=== PATIENT | female | born 1940 | race Caucasian/White ===

== ENCOUNTER 2020-10-01 | Outpatient (REF) | payer MEDICARE, SELFPAY ==
[2020-10-01 10:51] LABS: MANUAL DIFF FLAG NO
[2020-10-01 10:58] LABS: Basophils Absolute Auto 0.1 X10*3/uL (0.0-0.2); Basophils Percent Auto 0.4 % (0-2); Eosinophils Absolute Auto 0.1 X10*3/uL (0.0-0.4); Eosinophils Percent Auto 0.9 % (0-4); Hematocrit 37.5 % (37-47); Hemoglobin 12.5 g/dl (12.0-16.0); Imm Gran Abs Auto 0.05 X10*3/uL (0.00-0.03); Imm Gran Pct Auto 0.4 % (0.0-0.4); Lymphocytes Absolute Auto 1.3 X10*3/uL (1.2-4.9); Lymphocytes Percent Auto 10.9 % (20-40); Mean Corpuscular HGB Conc 33.3 g/dl (31.0-35.0); Mean Corpuscular Hemoglobin 33.6 pg (27.0-33.0); Mean Corpuscular Volume 100.8 fL (80-98); Mean Platelet Volume 11.7 fL (9.4-12.3); Monocytes Absolute Auto 1.1 X10*3/uL (0.1-1.2); Monocytes Percent Auto 9.3 % (2-11); Neutrophils Absolute Auto 9.3 X10*3/uL (2.0-8.3); Neutrophils Percent Auto 78.1 % (45-73); Platelet Count 302 X10*3/uL (160-400); Red Blood Count 3.72 X10*6/uL (4.20-5.50); Red Cell Distribution Width 12.6 % (11.0-16.0); White Blood Count 11.9 X10*3/uL (4.8-10.8)
[2020-10-01 11:24] LABS: Anion Gap 18 (12-20); Blood Urea Nitrogen 64 mg/dL (9-16); Calcium 9.1 mg/dL (8.4-10.2); Carbon Dioxide 25 mmol/L (22-29); Chloride 98 mmol/L (96-108); Estimated Glomerular Filt Rate 27; Glucose Random 115 mg/dL (60-115); Potassium 4.4 mmol/l (3.3-5.1); Sodium 137 mmol/L (135-145)
== END 2020-10-01 00:01 | disposition home or self-care (01) ==
LOC: HO.LHD
PROVIDERS: Visit Provider Internal Medicine
DX: D50.0 Iron deficiency anemia secondary to blood loss (chronic) (principal); I48.11 Longstanding persistent atrial fibrillation; K21.9 Gastro-esophageal reflux disease without esophagitis; I10 Essential (primary) hypertension
CPT/HCPCS: 36415; 80048; 85025

== ENCOUNTER 2020-12-12 05:27 | Outpatient (REF) | payer MEDICARE, SELFPAY ==
[2020-12-12 11:16] LABS: MANUAL DIFF FLAG NO
[2020-12-12 11:21] LABS: Basophils Absolute Auto 0.1 X10*3/uL (0.0-0.2); Basophils Percent Auto 0.6 % (0-2); Eosinophils Absolute Auto 0.1 X10*3/uL (0.0-0.4); Eosinophils Percent Auto 0.9 % (0-4); Hematocrit 37.8 % (37-47); Hemoglobin 12.2 g/dl (12.0-16.0); Imm Gran Abs Auto 0.02 X10*3/uL (0.00-0.03); Imm Gran Pct Auto 0.3 % (0.0-0.4); Lymphocytes Absolute Auto 1.1 X10*3/uL (1.2-4.9); Lymphocytes Percent Auto 13.4 % (20-40); Mean Corpuscular HGB Conc 32.3 g/dl (31.0-35.0); Mean Corpuscular Hemoglobin 32.7 pg (27.0-33.0); Mean Corpuscular Volume 101.3 fL (80-98); Mean Platelet Volume 10.9 fL (9.4-12.3); Monocytes Absolute Auto 0.7 X10*3/uL (0.1-1.2); Monocytes Percent Auto 9.2 % (2-11); Neutrophils Percent Auto 75.6 % (45-73); Platelet Count 351 X10*3/uL (160-400); Red Blood Count 3.73 X10*6/uL (4.20-5.50); Red Cell Distribution Width 12.1 % (11.0-16.0)
[2020-12-12 11:53] LABS: Anion Gap 17 (12-20); Blood Urea Nitrogen 40 mg/dL (9-16); Calcium 9.2 mg/dL (8.4-10.2); Carbon Dioxide 26 mmol/L (22-29); Chloride 98 mmol/L (96-108); Estimated Glomerular Filt Rate 29; Glucose Random 103 mg/dL (60-115); Sodium 137 mmol/L (135-145)
== END 2020-12-12 05:28 | disposition home or self-care (01) ==
LOC: HO.LHD 05:27
PROVIDERS: Visit Provider Internal Medicine
DX: D50.0 Iron deficiency anemia secondary to blood loss (chronic) (principal); R60.0 Localized edema; I48.19 Other persistent atrial fibrillation; E55.9 Vitamin D deficiency, unspecified; J30.2 Other seasonal allergic rhinitis; J45.20 Mild intermittent asthma, uncomplicated
CPT/HCPCS: 36415; 80048; 85025

== ENCOUNTER 2021-06-25 08:21 | Outpatient (REF) | payer MEDICARE, SELFPAY ==
[2021-06-25 10:58] LABS: MANUAL DIFF FLAG NO
[2021-06-25 11:05] LABS: Basophils Percent Auto 0.5 % (0-2); Eosinophils Percent Auto 1.9 % (0-4); Hemoglobin 12.7 g/dl (12.0-16.0); Imm Gran Abs Auto 0.02 X10*3/uL (0.00-0.03); Imm Gran Pct Auto 0.3 % (0.0-0.4); Lymphocytes Percent Auto 16.6 % (20-40); Mean Corpuscular HGB Conc 32.6 g/dl (31.0-35.0); Mean Corpuscular Hemoglobin 33.1 pg (27.0-33.0); Mean Corpuscular Volume 101.6 fL (80-98); Mean Platelet Volume 11.9 fL (9.4-12.3); Monocytes Percent Auto 10.1 % (2-11); Neutrophils Absolute Auto 5.6 X10*3/uL (2.0-8.3); Neutrophils Percent Auto 70.6 % (45-73); Platelet Count 289 X10*3/uL (160-400); Red Blood Count 3.84 X10*6/uL (4.20-5.50); Red Cell Distribution Width 12.4 % (11.0-16.0); White Blood Count 7.9 X10*3/uL (4.8-10.8)
[2021-06-25 11:06] LABS: Eosinophils Absolute Auto 0.2 X10*3/uL (0.0-0.4); Lymphocytes Absolute Auto 1.3 X10*3/uL (1.2-4.9); Monocytes Absolute Auto 0.8 X10*3/uL (0.1-1.2)
[2021-06-25 11:26] LABS: Anion Gap 16 (12-20); Blood Urea Nitrogen 41 mg/dL (9-16); Calcium 9.4 mg/dL (8.4-10.2); Carbon Dioxide 25 mmol/L (22-29); Chloride 102 mmol/L (96-108); Cholesterol 133 mg/dL; Estimated Glomerular Filt Rate 28; Glucose Fasting 97 mg/dL (60-99); HDL Cholesterol 50 mg/dL; Iron 57 mcg/dL (30-160); LDL Cholesterol Calculated 64 mg/dl; Percent Iron Saturation 17 % (15-50); Potassium 4.5 mmol/L (3.3-5.1); Sodium 138 mmol/L (135-145); Total Iron Binding Capacity 337 mcg/dL (228-428); Triglycerides 97 mg/dL; Unsaturated Iron Binding 280 ug/dL
[2021-06-25 11:44] LABS: Vitamin D 25-OH Total 45.9 ng/mL (>30)
[2021-06-25 12:47] LABS: Ferritin 67 ng/mL (10-250)
== END 2021-06-25 08:22 | disposition home or self-care (01) ==
LOC: HO.LHD 08:21
PROVIDERS: Visit Provider Internal Medicine
DX: I48.11 Longstanding persistent atrial fibrillation (principal); R60.0 Localized edema; D50.0 Iron deficiency anemia secondary to blood loss (chronic); E55.9 Vitamin D deficiency, unspecified
CPT/HCPCS: 36415; 80048; 80061; 82306; 82728; 83540; 84443; 85025

== ENCOUNTER 2021-12-25 08:25 | Outpatient (REF) | payer MEDICARE, SELFPAY ==
[2021-12-24 10:49] LABS: MANUAL DIFF FLAG NO
[2021-12-24 10:52] LABS: Basophils Percent Auto 0.4 % (0-2); Eosinophils Absolute Auto 0.1 X10*3/uL (0.0-0.4); Hemoglobin 12.2 g/dl (12.0-16.0); Imm Gran Abs Auto 0.03 X10*3/uL (0.00-0.03); Imm Gran Pct Auto 0.4 % (0.0-0.4); Lymphocytes Absolute Auto 1.1 X10*3/uL (1.2-4.9); Lymphocytes Percent Auto 13.4 % (20-40); Mean Corpuscular Hemoglobin 33.7 pg (27.0-33.0); Mean Corpuscular Volume 102.2 fL (80.0-98.0); Mean Platelet Volume 12.2 fL (9.4-12.3); Monocytes Percent Auto 12.3 % (2-11); Neutrophils Absolute Auto 5.7 x10*3/uL (2.0-8.3); Neutrophils Percent Auto 72.5 % (45-73); Platelet Count 256 X10*3/uL (160-400); Red Blood Count 3.62 X10*6/uL (4.20-5.50); Red Cell Distribution Width 12.2 % (11.0-16.0); White Blood Count 7.9 X10*3/uL (4.8-10.8)
[2021-12-24 11:27] LABS: Alanine Aminotransferase 10 U/L (0-31); Albumin Level 4.2 g/dL (3.5-5.0); Alkaline Phosphatase 75 U/L (39-117); Anion Gap 14 (12-20); Aspartate Amino Transferase 16 U/L (5-31); Bilirubin Total 0.7 mg/dL (0.0-1.0); Blood Urea Nitrogen 54 mg/dL (9-16); Carbon Dioxide 28 mmol/L (22-29); Chloride 102 mmol/L (96-108); Cholesterol 139 mg/dL; Estimated Glomerular Filt Rate 27; Glucose Fasting 100 mg/dL (60-99); HDL Cholesterol 63 mg/dL; LDL Cholesterol Calculated 62 mg/dl; Potassium 4.6 mmol/L (3.3-5.1); Sodium 139 mmol/L (135-145); Total Protein 6.9 g/dL (6.5-8.0); Triglycerides 71 mg/dL
[2021-12-24 11:50] LABS: Thyroid Stimulating Hormone 2.02 uIU/mL (0.32-4.0); Vitamin D 25-OH Total 37.9 ng/mL (>30)
== END 2021-12-25 08:26 | disposition home or self-care (01) ==
LOC: HO.LHD 08:25
PROVIDERS: Visit Provider Internal Medicine
DX: I10 Essential (primary) hypertension (principal); E78.00 Pure hypercholesterolemia, unspecified; I48.11 Longstanding persistent atrial fibrillation; K21.9 Gastro-esophageal reflux disease without esophagitis; E55.9 Vitamin D deficiency, unspecified; J45.20 Mild intermittent asthma, uncomplicated; D50.0 Iron deficiency anemia secondary to blood loss (chronic)
CPT/HCPCS: 36415; 80053; 80061; 82306; 84443; 85025

== ENCOUNTER 2023-07-01 07:21 | Outpatient (REF) | payer MEDICARE, SELFPAY ==
[2023-07-01 11:20] LABS: Basophils Absolute Auto 0.1 X10*3/uL (0.0-0.2); Basophils Percent Auto 0.8 % (0-2); Eosinophils Absolute Auto 0.1 X10*3/uL (0.0-0.4); Eosinophils Percent Auto 1.8 % (0-4); Hematocrit 34.3 % (37.0-47.0); Hemoglobin 11.3 g/dl (12.0-16.0); Imm Gran Abs Auto 0.03 X10*3/uL (0.00-0.03); Imm Gran Pct Auto 0.5 % (0.0-0.4); Lymphocytes Absolute Auto 1.2 X10*3/uL (1.2-4.9); Lymphocytes Percent Auto 17.5 % (20-40); MANUAL DIFF FLAG NO; Mean Corpuscular HGB Conc 32.9 g/dl (31.0-35.0); Mean Corpuscular Hemoglobin 32.9 pg (27.0-33.0); Mean Platelet Volume 11.4 fL (9.4-12.3); Monocytes Absolute Auto 0.8 X10*3/uL (0.1-1.2); Monocytes Percent Auto 11.6 % (2-11); Neutrophils Absolute Auto 4.5 x10*3/uL (2.0-8.3); Neutrophils Percent Auto 67.8 % (45-73); Platelet Count 266 X10*3/uL (160-400); Red Blood Count 3.43 X10*6/uL (4.20-5.50); White Blood Count 6.6 X10*3/uL (4.8-10.8)
[2023-07-01 12:59] LABS: Alanine Aminotransferase 11 U/L (0-31); Albumin Level 3.9 g/dL (3.5-5.0); Alkaline Phosphatase 71 U/L (39-117); Anion Gap 16 (12-20); Aspartate Amino Transferase 18 U/L (5-31); Bilirubin Total 0.4 mg/dL (0.0-1.0); Blood Urea Nitrogen 49 mg/dL (9-16); Calcium 9.7 mg/dL (8.4-10.2); Carbon Dioxide 27 mmol/L (22-29); Chloride 104 mmol/L (96-108); Cholesterol 124 mg/dL (<200); Estimated Glomerular Filt Rate 31; Ferritin 43 ng/mL (10-250); Glucose Fasting 87 mg/dL (60-99); HDL Cholesterol 49 mg/dL (>40); Iron 75 mcg/dL (30-160); LDL Cholesterol Calculated 59 mg/dL (<100); Percent Iron Saturation 27 % (15-50); Potassium 4.5 mmol/L (3.3-5.1); Sodium 142 mmol/L (135-145); Thyroid Stimulating Hormone 1.57 uIU/mL (0.32-4.0); Total Iron Binding Capacity 274 mcg/dL (228-428); Total Protein 6.6 g/dL (6.5-8.0); Triglycerides 80 mg/dL (<150); Unsaturated Iron Binding 199 ug/dL; Vitamin D 25-OH Total 45.9 ng/mL (>30)
== END 2023-07-01 07:22 | disposition home or self-care (01) ==
LOC: HO.LHD 07:21
PROVIDERS: Visit Provider Internal Medicine
DX: I10 Essential (primary) hypertension (principal); E78.00 Pure hypercholesterolemia, unspecified; I48.11 Longstanding persistent atrial fibrillation; E66.09 Other obesity due to excess calories; D50.0 Iron deficiency anemia secondary to blood loss (chronic); E55.9 Vitamin D deficiency, unspecified; J45.20 Mild intermittent asthma, uncomplicated
CPT/HCPCS: 36415; 80053; 80061; 82306; 82728; 83540; 84443; 85025

== ENCOUNTER 2024-01-13 08:09 | Outpatient (REF) | payer MEDICARE, SELFPAY ==
[2024-01-13 10:54] LABS: MANUAL DIFF FLAG NO
[2024-01-13 10:56] LABS: Basophils Absolute Auto 0.1 X10*3/uL (0.0-0.2); Basophils Percent Auto 0.8 % (0-2); Eosinophils Absolute Auto 0.1 X10*3/uL (0.0-0.4); Eosinophils Percent Auto 1.5 % (0-4); Hematocrit 36.3 % (37.0-47.0); Hemoglobin 12.1 g/dl (12.0-16.0); Imm Gran Abs Auto 0.02 X10*3/uL (0.00-0.03); Imm Gran Pct Auto 0.3 % (0.0-0.4); Lymphocytes Absolute Auto 0.9 X10*3/uL (1.2-4.9); Lymphocytes Percent Auto 15.1 % (20-40); Mean Corpuscular HGB Conc 33.3 g/dl (31.0-35.0); Mean Corpuscular Hemoglobin 32.7 pg (27.0-33.0); Mean Corpuscular Volume 98.1 fL (80.0-98.0); Mean Platelet Volume 11.2 fL (9.4-12.3); Monocytes Absolute Auto 0.8 X10*3/uL (0.1-1.2); Monocytes Percent Auto 12.7 % (2-11); Neutrophils Absolute Auto 4.1 x10*3/uL (2.0-8.3); Neutrophils Percent Auto 69.6 % (45-73); Platelet Count 267 X10*3/uL (160-400); Red Cell Distribution Width 12.7 % (11.0-16.0); White Blood Count 5.9 X10*3/uL (4.8-10.8)
[2024-01-13 11:21] LABS: Alanine Aminotransferase 12 U/L (0-31); Albumin Level 4.1 g/dL (3.5-5.0); Alkaline Phosphatase 90 U/L (39-117); Anion Gap 14 (12-20); Aspartate Amino Transferase 18 U/L (5-31); Bilirubin Direct 0.2 mg/dL (0.0-0.5); Bilirubin Total 0.4 mg/dL (0.0-1.0); Blood Urea Nitrogen 54 mg/dL (9-16); Calcium 9.8 mg/dL (8.4-10.2); Carbon Dioxide 26 mmol/L (22-29); Chloride 102 mmol/L (96-108); Cholesterol 123 mg/dL (<200); Estimated Glomerular Filt Rate 31; Glucose Fasting 99 mg/dL (60-99); HDL Cholesterol 58 mg/dL (>40); Iron 144 mcg/dL (30-160); LDL Cholesterol Calculated 48 mg/dL (<100); Percent Iron Saturation 45 % (15-50); Sodium 138 mmol/L (135-145); Total Iron Binding Capacity 322 mcg/dL (228-428); Triglycerides 88 mg/dL (<150); Unsaturated Iron Binding 178 ug/dL
[2024-01-13 11:35] LABS: Ferritin 43 ng/mL (10-250)
== END 2024-01-13 08:10 | disposition home or self-care (01) ==
LOC: HO.LHD 08:09
PROVIDERS: Visit Provider Internal Medicine
DX: I48.11 Longstanding persistent atrial fibrillation (principal); E78.00 Pure hypercholesterolemia, unspecified; R60.0 Localized edema; K21.9 Gastro-esophageal reflux disease without esophagitis; E55.9 Vitamin D deficiency, unspecified; J45.20 Mild intermittent asthma, uncomplicated; D50.0 Iron deficiency anemia secondary to blood loss (chronic)
CPT/HCPCS: 36415; 80048; 80061; 80076; 82306; 82728; 83540; 84443; 85025

== ENCOUNTER 2024-07-14 07:46 | Outpatient (REF) | payer MEDICARE, SELFPAY ==
[2024-07-14 11:18] LABS: MANUAL DIFF FLAG NO
[2024-07-14 11:21] LABS: Basophils Absolute Auto 0.1 X10*3/uL (0.0-0.2); Eosinophils Absolute Auto 0.1 X10*3/uL (0.0-0.4); Hematocrit 31.2 % (37.0-47.0); Hemoglobin 10.4 g/dl (12.0-16.0); Imm Gran Abs Auto 0.02 X10*3/uL (0.00-0.03); Imm Gran Pct Auto 0.3 % (0.0-0.4); Lymphocytes Absolute Auto 0.9 X10*3/uL (1.2-4.9); Lymphocytes Percent Auto 14.3 % (20-40); Mean Corpuscular HGB Conc 33.3 g/dl (31.0-35.0); Mean Corpuscular Hemoglobin 32.5 pg (27.0-33.0); Mean Corpuscular Volume 97.5 fL (80.0-98.0); Mean Platelet Volume 10.5 fL (9.4-12.3); Monocytes Percent Auto 16.6 % (2-11); Neutrophils Percent Auto 65.8 % (45-73); Platelet Count 284 X10*3/uL (160-400); Red Cell Distribution Width 12.8 % (11.0-16.0)
[2024-07-14 11:50] LABS: Alanine Aminotransferase 13 U/L (0-31); Albumin Level 3.6 g/dL (3.5-5.0); Alkaline Phosphatase 94 U/L (39-117); Anion Gap 11 (12-20); Aspartate Amino Transferase 19 U/L (5-31); Bilirubin Total 0.3 mg/dL (0.0-1.0); Blood Urea Nitrogen 25 mg/dL (9-16); Carbon Dioxide 20 mmol/L (22-29); Chloride 104 mmol/L (96-108); Estimated Glomerular Filt Rate 47; Glucose Random 97 mg/dL (60-115); Iron 40 mcg/dL (30-160); Percent Iron Saturation 15 % (15-50); Potassium 4.7 mmol/L (3.3-5.1); Sodium 130 mmol/L (135-145); Total Iron Binding Capacity 266 mcg/dL (228-428); Total Protein 6.2 g/dL (6.5-8.0); Unsaturated Iron Binding 226 ug/dL; Uric Acid 8.8 mg/dL (2.4-5.7)
[2024-07-14 12:07] LABS: Ferritin 61 ng/mL (10-250); Thyroid Stimulating Hormone 1.92 uIU/mL (0.32-4.0); Vitamin D 25-OH Total 34.8 ng/mL (>30)
== END 2024-07-14 07:47 | disposition home or self-care (01) ==
LOC: HO.LHD 07:46
PROVIDERS: Visit Provider Internal Medicine
DX: I10 Essential (primary) hypertension (principal); I48.11 Longstanding persistent atrial fibrillation; E78.00 Pure hypercholesterolemia, unspecified; K21.9 Gastro-esophageal reflux disease without esophagitis; E55.9 Vitamin D deficiency, unspecified; J45.20 Mild intermittent asthma, uncomplicated; D50.0 Iron deficiency anemia secondary to blood loss (chronic); R60.0 Localized edema
CPT/HCPCS: 36415; 80053; 82306; 82728; 83540; 84443; 84550; 85025

== ENCOUNTER 2025-02-17 10:35 | Outpatient (AMB) | payer MEDICARE, SELFPAY ==
--- NOTE | 2025-02-17 10:24 | A.OFFPC_ITS ---
Vital Signs 02/17/25 10:27 BP 126/54 L Pulse 51 Intake Visit Reasons: follow up Allergies adhesive tape [ADHESIVE TAPE] Allergy (Unknown, Unverified 02/17/25 10:34) RASH shrimp Allergy (Unknown, Unverified 02/17/25 10:34) HIVES atacand/HCT Allergy (Unknown, Uncoded 02/17/25 10:34) weakness Medication List - Last Reconciled 02/17/25 by Jamaica Rosenberg PA-C albuterol sulfate 90 mcg/actuation 2 puffs inhalation Q4-6H PRN ascorbic acid (vitamin C) 500 mg PO DAILY atenolol 50 mg PO DAILY 30 days bumetanide 2 mg PO DAILY PRN cholecalciferol (vitamin D3) 50 mcg (2 x 25 mcg (1,000 unit)) PO DAILY clotrimazole-betamethasone 1-0.05 % 1 appl topical BID ferrous sulfate (FeroSul) 325 mg PO DAILY omeprazole 40 mg PO DAILY rivaroxaban (Xarelto) 20 mg PO DAILY simvastatin 40 mg PO BEDTIME spironolactone 50 mg PO DAILY Tobacco use date assessed: 02/17/25 Fall risk assessment: No Falls in past year Last assessed Fall Risk: 02/17/25 Dental Screening Dental Screen Date: 02/17/25 Did you have a dental visit in the last 12 months?: No Did you have a dental problem in the last 6 months where you did not have access to dental care?: No Was dental information given to patient?: Patient has dentist HPI follow up HPI Details The patient is an 85-year-old female presenting for a follow-up visit. She has a history of essential hypertension and atrial fibrillation, managed with medications including atenolol and Xarelto. Iron deficiency anemia was noted in June, managed with ferrous sulfate. In the same period, she experienced low sodium levels without significant symptoms or concerns. She has gastroesophageal reflux disease, managed with omeprazole, and vitamin D deficiency requiring supplementation. The patient's medical history includes asthma, managed with a buterol inhaler, and her gout, which was last noted to flare in May. She was prescribed allopurinol, but has yet to initiate it until further lab results are obtained. Her lifestyle includes managing her mobility challenges due to gait abnormality, relying on a walker to prevent falls. She remains at home under family care with significant mobility limitations. Social History - Patient lives with significant care fr om her daughter and granddaughter. - Mobility is severely challenged, requi ring the use of a walker and home-based care. - Increased water intake to prevent gout exacerbations. - Home visits are essential for routine labs due to her mobility challenges. - Engages in minimal movement, primarily for basic daily functions. [facility] Medical History (Updated 02/17/25 @ 10:48 by Jamaica Rosenberg PA-C) Establishing care with new doctor, encounter for History of mammogram (~11/18/19) Walker as ambulation aid Gait abnormality A-fib Iron deficiency anemia GERD (gastroesophageal reflux disease) Vitamin C deficiency Hypertension Asthma Gout Surgical History (Updated 02/17/25 @ 10:48 by Jamaica Rosenberg PA-C) History of colonoscopy (~2010) Family History Father Stroke Mother BP (high blood pressure) Diabetes Social History Housing: Condominium Alcohol intake: current Alcohol intake frequency: holidays/special occasions only Patient Tobacco Use Status: Former Tobacco user service: No Current occupational status: retired Cognitive needs: Yes (cane/walker) Hearing needs: No Vision needs: Yes (rx glasses) Questionnaire PHQ-9 Over the last 2 weeks, how often have you been bothered by any of the following problems? 1. Little interest or pleasure in doing things: not at all 2. Feeling down, depressed, or hopeless: not at all 3. Trouble falling or staying asleep, or sleeping too much: not at all 4. Feeling tired or having little energy: not at all 5. Poor appetite or overeating: not at all 6. Feeling bad about yourself - or that you are a failure or have let yourself or your family down: not at all 7. Trouble concentrating on things, such as reading the newspaper or watching television: not at all 8. Moving or speaking so slowly that other people could have noticed. Or the opposite - being so fidgety or restless that you have been moving around a lot more than usual: not at all 9. Thoughts that you would be better off or of hurting yourself in some way: not at all Total score: 0 Depression Screening Interpretation: Negative Depression Screening Done: Yes 90275 - PHQ-9 Billing: Yes Source: Developed by Drs. Christiano Cobian, Milka Cole, Chris Jason and colleagues, with an educational tomasa from [employer]. Thrive Questionnaire Date Thrive assessed: 02/17/25 I am a: Patient What is your living situation today?: I have a steady place to live Within the past 12 months, did the food you bought not last and you didn't have the money to get more?: Never true Within the past 12 months, did you worry whether your food would run out before you got money to buy more?: Never true Do you have trouble paying for medicines?: No Do you have trouble getting transportation to medical appointments?: No Do you have trouble paying your heating and electricity bill?: No Do you have trouble taking care of your child, family member or friend?: No Do you have trouble with day-to-day activities such as bathing, preparing meals, shopping, managing finances, etc.?: No Are you currently unemployed and looking for a job?: No Are you interested in more education?: No Please select the resources that you would like help with: None THRIVE Score: 0 AUDIT C Alcohol Use Questionnaire (AUDIT-C) 1. How often do you have a drink containing alcohol?: Monthly or less 2. How many drinks containing alcohol do you have on a typical day when you are drinking?: 1 or 2 3. How often do you have six or more drinks on one occasion?: Never Total Score: 1 Score Reviewed/Action Taken: No KULDIP-7 AMB Questionnaire KULDIP-7 Date KULDIP - 7 assessed: 02/17/25 Feeling nervous, anxious, or on edge: 0 = Not at all Not being able to stop or control worryin = Not at all Worrying too much about different things: 0 = Not at all Trouble relaxin = Not at all Being so restless that it is hard to sit still: 0 = Not at all Becoming easily annoyed or irritable: 0 = Not at all Feeling afraid as if something awful might happen: 0 = Not at all Total KULDIP-7 score (0-4 normal; 5-9 mild; 10-14 moderate; 15-21 severe): 0 Source: Developed by Drs. Christiano Cobian, Milka Cole, Chris Jason and colleagues, with an educational tomasa from [employer]. KULDIP-7 Assessment Billing KULDIP-7 Assessment Tool: KULDIP-7 Assessment 21490 Review of Systems Const Details: - Cardiovascular: Denies dizziness; is on atenolol and Xarelto for hypertension and atrial fibrillation. - Musculoskeletal: Reports joint pain associated with gout; uses a walker for ambulation. - Respiratory: Reports asthma controlled with buterol inhaler; denies recent asthma attacks. - Gastrointestinal: Reports gastroesophageal reflux disease managed with omeprazole. - Hematologic: On ferrous sulfate for iron deficiency anemia; denies abnormal bleeding. - Neurological: Denies dizziness or recent falls. - Endocrine: Reports vitamin D deficiency; on supplements. - General: Denies significant recent physical changes; mobility limited due to gait abnormality. Physical exam (Primary Care) Vital Signs: Last Vital Signs Pulse 51 02/17/25 10:27 BP 126/54 L 02/17/25 10:27 Care Plan Goal for BP management: <130/90 at Goal Tobacco/Smoking Status: Tobacco use Status Tobacco use date assessed 02/17/25 02/17/25 10:33 Patient Tobacco Use Status Former Tobacco user 02/17/25 10:33 PHQ-9: PHQ-9 Score PHQ-9: Total score 0 02/17/25 10:35 Depression Screening Interpretation: Negative Thrive Assessment: Date of Thrive Assessment Date Thrive assessed 02/17/25 02/17/25 10:33 Telehealth Telehealth Telehealth Platform: Telephone Location of provider rendering services: practice address Location of patient: address on file Patient Identification confirmed using: Name, : Yes Telehealth method: voice only Patient verbally consented to treatment: Yes Patient verbally consented to billing insurance company: Yes Patient informed of any privacy concerns related to visit: Yes Minutes spent on Phone/Video with Pt.: 15 Results Reviewed Results Reviewed: - Labs ordered: CBC, CMP, ESR, CRP, uric acid, liver function tests, magnesium, hemoglobin A1c, thyroid function test, vitamin B12 and folate, vitamin D. Coding Level of Care Code New Pt Level 4 (98825) Complex EM visit Add On G2211 Diagnoses Establishing care with new doctor, encounter for Z76.89 Walker as ambulation aid Z99.89 Gait abnormality R26.9 A-fib I48.91 Iron deficiency anemia D50.9 GERD (gastroesophageal reflux disease) K21.9 Vitamin C deficiency E54 Hypertension I10 Asthma J45.909 Gout M10.9 Additional Codes PHQ-9 - 56517 - PHQ-9 Billing: Yes ([id number]) KULDIP-7 Assessment Billing - KULDIP-7 Assessment Tool: KULDIP-7 Assessment 82872 ([id number]) Assessment & Plan Assessment & Plan (1) Establishing care with new doctor, encounter for: Code(s): Z76.89 - Persons encountering health services in other specified circumstances Category: Medical Plan: Patient was a patient of Dr. Lucas establishing care with a new provider. (2) Walker as ambulation aid: Code(s): Z99.89 - Dependence on other enabling machines and devices Category: Medical Plan: Use of a walker to enhance mobility; assess safety and mobility. Condition is chronic and stable will continue to monitor. (3) Gait abnormality: Code(s): R26.9 - Unspecified abnormalities of gait and mobility Category: Medical Plan: Use of a walker to enhance mobility; assess safety and mobility. Condition is chronic and stable will continue to monitor. (4) A-fib: Code(s): I48.91 - Unspecified atrial fibrillation Category: Medical Plan: Ongoing anticoagulation with Xarelto; no treatment changes, facilitating necessary medication refills. Condition is chronic and stable continue to monitor. (5) Iron deficiency anemia: Code(s): D50.9 - Iron deficiency anemia, unspecified Category: Medical Plan: Managed with ferrous sulfate; monitor hemoglobin and iron levels with labs. Condition is chronic and stable continue to monitor. (6) GERD (gastroesophageal reflux disease): Code(s): K21.9 - Gastro-esophageal reflux disease without esophagitis Category: Medical Plan: Maintained on omeprazole; no current issues reported. Condition is chronic and stable continue to monitor. (7) Vitamin C deficiency: Code(s): E54 - Ascorbic acid deficiency Category: Medical Plan: Vitamin-C supplement is in place. Condition is chronic and stable continue to monitor. (8) Hypertension: Code(s): I10 - Essential (primary) hypertension Category: Medical Plan: Hypertension is under control with atenolol; ensure adequate medication supply with refills for simvastatin and bumetanide. Condition is chronic and stable continue to monitor. (9) Asthma: Code(s): J45.909 - Unspecified asthma, uncomplicated Category: Medical Plan: Managed with albuterol inhaler; ensure access and compliance. Condition is chronic and stable continue to monitor. (10) Gout: Code(s): M10.9 - Gout, unspecified Category: Medical Plan: Monitor flares and consider allopurinol based on lab review. Condition is chronic and stable continue to monitor. Plan Plan Patient was informed and verbally consented to the use of an ambient scribe for clinic note documentation during this visit. 1. Essential Hypertension Hypertension is under control with atenolol; ensure adequate medication supply with refills for simvastatin and bumetanide. 2. Atrial Fibrillation Ongoing anticoagulation with Xarelto; no treatment changes, facilitating necessary medication refills. 3. Iron Deficiency Anemia Managed with ferrous sulfate; monitor hemoglobin and iron levels with labs. 4. Gastroesophageal Reflux Disease Maintained on omeprazole; no current issues reported. 5. Vitamin D Deficiency Vitamin D supplementation is in place; levels to be reassessed. 6. Asthma Managed with buterol inhaler; ensure access and compliance. 7. Gout Monitor flares and consider allopurinol based on lab review. 8. Gait Abnormality Use of a walker to enhance mobility; assess safety and mobility. During the visit, we discussed management options for each of the patient?s chronic conditions. For hypertension and atrial fibrillation, her current medication regimen with atenolol and Xarelto will continue unchanged, with refills ordered to prevent interruption in care. The patient is currently stable regarding her iron deficiency anemia, GERD, and asthma and will sustain her current treatment approaches with ongoing monitoring. We also addressed gout, noting she has not had significant flares since May, and will consider starting allopurinol depending on future uric acid levels. Vitamin D supplementation persists, and levels will be checked. Her functional limitations due to her gait abnormality were acknowledged, with the use of a walker deemed necessary to prevent falls. We also reviewed her residence setup for laboratory procedures to be continued as scheduled to ensure the monitoring of her overall health status. Orders: Orders C Reactive Protein Today Z00.00 - Encounter for general adult medical examination without abnormal findings Comprehensive [place]. Panel Fast Today Z00.00 - Encounter for general adult medical examination without abnormal findings Erythrocyte Sedimentation Rate Today Z00.00 - Encounter for general adult medical examination without abnormal findings Magnesium Today Z00.00 - Encounter for general adult medical examination without abnormal findings Lipid Panel Today Z00.00 - Encounter for general adult medical examination without abnormal findings TSH reflex Free T4 Today Z00.00 - Encounter for general adult medical examination without abnormal findings Vitamin D 25-OH Total Today Z00.00 - Encounter for general adult medical examination without abnormal findings Complete Blood Count Auto Diff Today Z00.00 - Encounter for general adult medical examination without abnormal findings Liver Panel Today Z00.00 - Encounter for general adult medical examination without abnormal findings Hemoglobin A1c Today Z00.00 - Encounter for general adult medical examination without abnormal findings Uric Acid Today M10.9 - Gout, unspecified Vitamin B12 and Folate Today Z00.00 - Encounter for general adult medical examination without abnormal findings Medications: New bumetanide 2 mg PO DAILY PRN 90 tabs 1RF edema ferrous sulfate (FeroSul) 325 mg PO DAILY 90 tabs 1RF simvastatin 40 mg PO BEDTIME 90 tabs 1RF Patient Instructions: - Continue taking your current medications as prescribed. - Follow your lab schedule for regular tests at home. - Use your walker to ensure mobility safety. - Increase your hydration, particularly with water, to prevent gout flare-ups. - Do not hesitate to contact us if you have any questions or notice new symptoms.
[2025-02-17 10:27] VITALS: BP 126/54; PULSE 51
--- OUTSIDE RECORDS SUMMARY | 2025-02-17 11:12 | XMS_ITS | Patient Health Record ---
Author Organization [facility] Address [address] [place] [address] Care Team Providers Care Toucher Up Name Role Phone Christiano Lucas Primary Care Provider MAKEDA Kumar Unavailable [phone] Allergies Allergen (clinical drug ingredient) Drug/Non Drug Allergy documented on EMR Reaction Allergy Type Onset Date Status candesartan / hydrochlorothiazide Atacand HCT Unknown Drug Allergy Active Results Component Value Reference Range Notes Anaerobic/Aerobic/Gram Stain -[id number] Reviewed date:07/04/2024 12:19:40 PM Interpretation: Performing Lab:[facility], [address], [address], [employer], Phone - [phone], Director - [facility] Notes/Report: Anaerobic Culture Final report Aerobic Culture Final report Gram Stain Result Final report Result 1 No anaerobic gr owth in 72 hours. Result 1 Skin jelena isolated Scant gr owth Result 1 No white blood cells seen. Result 2 No organisms seen Crystal,Synovial/Joint Fl-[id number] Reviewed date:07/04/2024 12:19:40 PM Interpretation: Performing Lab:[facility] [address], [address], [employer], Phone - [phone], Director - [facility] Notes/Report: Crystal,Synovial/Joint Fl None seen Monosodium urate cry stals observed by Polarized Light Microscopy. Reason For Referral Reason Patient with tophace ous gout likely secondary to her diuretic use. This is present at multiple sites (hands, fingers, elbows, feet) Need uric acid testing and further management. Rec referral also to rheum for possible use of krystexxa vs other medical management of tophi. 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) Referral Organization [facility] Referring Provider First Name MAKEDA Referring Provider Last Name LINUS Referring Provider Speciality Podiatry Referred Provider Specialty Family Medic ine Referral Priority Routine Medications Medication SIG (Take, Route, Frequency, Duration) Notes Start Date End Date Status Xarelto 20 MG 1 tablet with food Orally Once a day Active Atenolol 50 MG 1 tablet Orally Once a day Active Omeprazole 40 MG 1 capsule 30 minutes before morning meal Orally Once a day Active Simvastatin 40 MG 1 tablet in the even ing Orally Once a day Active Clotrimazole-Betamethasone 1-0.05 % 1 application Externally Twice a day Active Albuterol Sulfate HFA 108 (90 Base) MCG/ACT 1 puff as needed Inhalation every 4 hrs Active Spironolactone 50 MG 1 tablet Orally Onc e a day Active Cephalexin 500 MG 1 capsule Orally zachary ry 6 hrs Active Bumetanide 2 MG 1 tablet Orally Once a day Active FeroSul 325 (65 Fe) MG 1 tablet Orally T hree times a Week Active Vitamin D 25 MCG (1000 UT) 1 tablet Oral ly Once a day Active Vitamin C 500 MG as directed Orally Active Problems Problem Type SNOMED Code ICD Code Onset Dates Problem Status W/U Status Risk Notes Problem [id number] Chronic tophaceous gout (M1A.9XX1) Active confirmed Vital Signs Height 60.75 in 06/30/2024 Weight 210 lbs 06/30/2024 BMI 40 kg/m2 06/30/2024 Encounters Encounter Location Date Provider Diagnosis [facility] [address] 06/30/2024 MAKEDA BARRIGA 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 M1A.2711 and Chronic tophaceous gout M1A.9XX1 [facility] [address] 06/21/2024 MAKEDA BARRIGA [facility] [address] 07/04/2024 MAKEDA BARRIGA [facility] [address] 07/22/2024 MAKEDA BARRIGA Assessments Encounter Date Diagnosis (ICD Code) Assessment Notes Treatment Notes Treatment Clinical Notes Section Notes 06/30/2024 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 Time was 45 minutes spent in review of all these facets including face to face discussion with the patient regarding my findings and in discussion of a current and future treatment plan. 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 On further exam she has multiple sites of large tophi. This is likely secondary to her chronic diuretic use. I obtained samples of the tophi today and send them for crystal analysis to confirm uric acid crystals. I also took cultures and these were sent for gram stain, aerobic, and anaerobic testing. I will await results before adding any more antibiotics. The right 3rd toe was cleansed and a new bandaged applied. I advise that her daughter do this daily to avoid further infection. Patient needs further medical work up for the tophi and medication management. I recommend getting rheumatology involved as well. Medication management may decrease the bulk of the tophi overtime. This may help salvage the toe, otherwise the toe will need to be amputated. I will contact the patient regarding the labs taken today once I have the results. I have placed a referral back to the PCP for further medical management at this time. Plan Of Treatment No Information Insurance Providers Payer Name Payer Address Payer Phone Subscriber Number Group Number Insured Name Patient Relationship to Insured Coverage Start Date Coverage End Date [employer] of [place] [address] [place] [phone] [id number] Counter, Mary Jane Self - patient is the insured [employer] Medicare [id number] [address] [address] [place] [phone] [id number] Payton, Mary Jane Self - patient is the insured Medical (General) History Medical History History ICD Code hypertension hypercholesterolemia Chronic lower extremity edema gastroesophageal reflux disease (GERD) chronic renal insufficiency vitamin D deficiency seasonal allergies uterine cancer dyspnea on exertion ?? microcytic anemia pulmonary hypertension atrial fibrilation anxiety Surgical History Surgery Date(Month/Year) Uterine sx
--- OUTSIDE RECORDS SUMMARY | 2025-02-17 11:12 | XMS_ITS ---
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 Role Phone Christiano Lucas Primary Care Provider JOSEFA Kumar Unavailable [phone] Allergies Allergen (clinical drug ingredient) Drug/Non Drug Allergy documented on EMR Reaction Allergy Type Onset Date Status candesartan / hydrochlorothiazide Atacand HCT Unknown Drug Allergy Active Results Component Value Reference Range Notes Crystal,Synovial/Joint [id number] Reviewed date:07/04/2024 12:19:40 PM Interpretation: Performing Lab:[facility], [address], [address], [employer], Phone - [phone], [facility] Notes/Report: Crystal,Synovial/Joint Fl None seen Monosodium urate cry stals observed by Polarized Light Microscopy. Anaerobic/Aerobic/Gram Stain -[id number] Reviewed date:07/04/2024 12:19:40 PM Interpretation: Performing Lab:[facility], [address], [address], [employer], Phone - [phone], [facility] Notes/Report: Anaerobic Culture Final report Aerobic Culture Final report Gram Stain Result Final report Result 1 No anaerobic gr owth in 72 hours. Result 1 Skin jelena isolated Scant gr owth Result 1 No white blood cells seen. Result 2 No organisms seen Reason For Referral Reason Patient with tophace ous gout likely secondary to her diuretic use. This is present at multiple sites (hands, fingers, elbows, feet) Need uric acid testing and further management. Rec referral also to rheum for possible use of krystexxa vs other medical management of tophi. 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) Referral Organization [facility] Referring Provider First Name JOSEFA Referring Provider Last Name LINUS Referring Provider Speciality Podiatry Referred Provider Specialty Family Medic ine Referral Priority Routine REASON FOR VISIT Rt foot 3rd toe infection currently on a course of antibiotics by pcp Medications Medication SIG (Take, Route, Frequency, Duration) Notes Start Date End Date Status Omeprazole 40 MG 1 capsule 30 minutes before morning meal Orally Once a day Active Simvastatin 40 MG 1 tablet in the even ing Orally Once a day Active FeroSul 325 (65 Fe) MG 1 tablet Orally T hree times a Week Active Vitamin D 25 MCG (1000 UT) 1 tablet Oral ly Once a day Active Vitamin C 500 MG as directed Orally Active Clotrimazole-Betamethasone 1-0.05 % 1 application Externally Twice a day Active Albuterol Sulfate HFA 108 (90 Base) MCG/ACT 1 puff as needed Inhalation every 4 hrs Active Spironolactone 50 MG 1 tablet Orally Onc e a day Active Cephalexin 500 MG 1 capsule Orally zachary ry 6 hrs Active Bumetanide 2 MG 1 tablet Orally Once a day Active Xarelto 20 MG 1 tablet with food Orally Once a day Active Atenolol 50 MG 1 tablet Orally Once a day Active Problems Problem Type SNOMED Code ICD Code Onset Dates Problem Status W/U Status Risk Notes Problem 11873237 Chronic tophaceous gout (M1A.9XX1) Active confirmed Vital Signs Height 60.75 in 06/30/2024 Weight 210 lbs 06/30/2024 BMI 40 kg/m2 06/30/2024 Encounters Encounter Location Date Provider Diagnosis [facility] [address] [place] [address] 06/30/2024 JOSEFA BARRIGA 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 06/30/2024 Chronic tophaceous gout (ICD-10 - M1A.9XX1) Plan Of Treatment Treatment Notes Assessment Notes Chronic drug-induced gout in volving toe of right foot with tophus This is an outpatient visit for evaluation [...] for further medical management at this time. Referrals Referral Date Details 06/30/2024 06/30/2024, Patient with tophaceous gout likely secondary to her diuretic use. This is present at multiple sites (hands, fingers, elbows, feet) Need uric acid testing and further management. Rec referral also to rheum for possible use of krystexxa vs other medical management of tophi. Progress Notes * Juliette BENNETTeDOB:[birth year] (84 yo F)Acc No.[id number]:06/30/2024 Consult note Patient:?Mary Jane BENNETT Provider:?Josefa Santacruz DPM :1940???Age:84 Y???Sex:Female D ate:06/30/2024 Phone: Address:[address] [place] [id number] Pcp:Christiano Lucas Subjective: * Chief Complaints: * ???Rt foot 3rd toe infection currently on a course of antibiotics by pcp * HPI: ???Foot & Ankle:? Ms. Bennett is a pleasant 84 year old female who presents for a consultation. She is here with her daughter and granddaughter who are the primary historians as she is hard of hearing. Over the past few weeks her daughter has been caring for her and noticed that her right 3rd toe was very swollen and red. There was some areas of white with active drainage. She was unsure if this was due to her long toenail vs fungus vs bacterial. She contacted the PCP and they prescribed a course of oral antibiotics. She states this did help some, but the white patches kept returning and oozing. She contacted them again and they did send another course of cephalexin, which she is currently taking. Her daughter has been cleaning the toe daily with a wound wash and applying a bandage. She does not know what else she can do. Patient denies ever having an issue like this in the past. She has no known history of gout, but does take two diuretics for her chronic lower extremity edema. Her daughter encourages her to walk more to also help with the lower extremity swelling. She does have known renal insufficiency, afib, and hyperlipidemia as well. Unknown if PCP monitors uric acid. Last PCP note does discuss labs, but no orders for uric acid. Patient does admit to white mass like lesions around her fingers and her wrist. She also has large solid masses around the elbows. She attributed this to osteoarthritis. She does admit that these areas are tender at times and very stiff. They have been like this for many years. * ROS:?General/Constitutional:?Denies?Chills.?Denies?Fatigue.?Denies?Fever.?Denies?Headache.?Allergy/Immunology:?Denies?Hives.?Denies?Itching.?Denies?Rash.?Endocrine:?Denies?Excessive sweating.?Denies?Excessive thirst.?Denies?Frequent urination.?Respiratory:?Denies?Cough.?Denies?Shortness of breath,?denies.?Denies?Wheezing.?Cardiovascular:?Denies?Chest pain.?Denies?Claudication.?Denies?Cyanosis.?Admits?Fluid accumulation in the legs.?Admits?Heart problems.?Gastrointestinal:?Denies?Abdominal pain.?Denies?Constipation.?Denies?Diarrhea.?Hematology:?Denies?Bleeding problems,?denies.?Denies?Easy bruising,?denies.?Denies?Swollen glands.?Musculoskeletal:?Patient complaining of?? infection to the right 3rd toe. White substance.?.?Denies?History of Gout.?Denies?Joint stiffness.?Denies?Leg cramps.?Peripheral Vascular:?Denies?Blanching of skin.?Blood clots in legs?Denies.?Denies?Cold extremities.?Skin:?Denies?Masses.?Admits?Nail changes.?Admits?Skin lesion(s).?Admits?Skin oozing.?Neurologic:?Denies?Paralysis.?Denies?Tingling/Numbness.?Denies?Tremor.?Psychiatric:?Denies?Auditory/visual hallucinations.?Denies?Delusions.?Denies?Suicidal thoughts.? * Medical History:? * Surgical History:?Uterine sx * Hospitalization/Major Diagno stic Procedure:?Denies Past Hospitalization * Family History:? Family history of cardiac disease, hypertension, hyperlipidemia. * Social History:?Former smoker quit more than 10 years ago 2-4 alcoholic beverages a month Lives with daughter and granddaughter. * Medications:?TakingCephalexi n 500 MG Capsule 1 capsule Orally every 6 hrs Clotrimazole-Betamethasone 1-0.05 % Cream 1 application Externally Twice a day Albuterol Sulfate HFA 108 (90 Base) MCG/ACT Aerosol Solution 1 puff as needed Inhalation every 4 hrs Vitamin D 25 MCG (1000 UT) Tablet 1 tablet Orally Once a day Vitamin C 500 MG Capsule as directed Orally FeroSul 325 (65 Fe) MG Tablet 1 tablet Orally Three times a Week Omeprazole 40 MG Capsule Delayed Release 1 capsule 30 minutes before morning meal Orally Once a day Simvastatin 40 MG Tablet 1 tablet in the evening Orally Once a day Xarelto 20 MG Tablet 1 tablet with food Orally Once a day Atenolol 50 MG Tablet 1 tablet Orally Once a day Spironolactone 50 MG Tablet 1 tablet Orally Once a day Bumetanide 2 MG Tablet 1 tablet Orally Once a day Medication List reviewed and reconciled with the patientTaking Cephalexin 500 MG Capsule 1 capsule Orally every 6 hrs Taking Clotrimazole-Betamethasone 1-0.05 % Cream 1 application Externally Twice a day Taking Albuterol Sulfate HFA 108 (90 Base) MCG/ACT Aerosol Solution 1 puff as needed Inhalation every 4 hrs Taking Vitamin D 25 MCG (1000 UT) Tablet 1 tablet Orally Once a day Taking Vitamin C 500 MG Capsule as directed Orally Taking FeroSul 325 (65 Fe) MG Tablet 1 tablet Orally Three times a Week Taking Omeprazole 40 MG Capsule Delayed Release 1 capsule 30 minutes before morning meal Orally Once a day Taking Simvastatin 40 MG Tablet 1 tablet in the evening Orally Once a day Taking Xarelto 20 MG Tablet 1 tablet with food Orally Once a day Taking Atenolol 50 MG Tablet 1 tablet Orally Once a day Taking Spironolactone 50 MG Tablet 1 tablet Orally Once a day Taking Bumetanide 2 MG Tablet 1 tablet Orally Once a day Medication List reviewed and reconciled with the patient * Allergies:?Atacand HCT: Tae rgyno[Allergies Verified] Objective: * Vitals:?Wt: 210 lbs, Ht: 60. 75 in, BMI: 40 Index, Ht-cm: 154.31, Wt-k.25 kg. * Examination: ???General Examination: ???This is an elderly female. Alert and oriented today and in no acute distress. Patient comes in ambulating in sandals with socks with the aid of a walker. Breathing is regular and unlabored while sitting. Affect is pleasant and cooperative. No unusual anxiety or depression noted. Hearing loss. No evidence of visual impairment that would impact self care or ambulation. Patient has palpable dorsalis pedis and posterior tibial pulse bilaterally. +2 pitting edema present to both lower extremities from the tibial tuberosity region to the ankle bilaterally. No hair growth to the lower extremities. There is some edema to the dorsum of both feet that is slightly pitting. There is xerosis of skin around the dorsal and plantar forefoot area bilaterally and inbetween the toes. There is some mild hyperemia to the xerotic areas, but no pustules. All toenails are dystropic with onychogryphosis and onycholysis. The right 3rd toe is edematous and erythematous without any streaking erythema. There are many patches of oozing tophi present around the dorsum of the right 3rd toe. No purulence. No fluctuance or malodor. There is restricted motion of the right 3rd toe PIPJ and DIPJ, likely due to complete destruction. There are obvious tophi present to the metacarpal joints on both hands and in the distal tips of her fingers. She has large palpable tophi around both elbows. There are likely tophi around the restricted 1st MTP bilaterally as well. Subtalar and ankle joint range of motion are unrestricted. 5/5 strength for anterior, posterior, and lateral lower extremity muscle groups on the left and right. 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 Plan: * Treatment: 2.?Chronic tophaceous gout?LAB: Crystal,Synovial/Joint [id number] * Procedure Codes:? * Billing Information: * Visit Code:? 87006 Office Visit, New Pt., Level 4. * Procedure Codes:? * Sign off status: Completed true * Provider:?Josefa Santacruz DPM Date:?06/30 Generated for Vanessa villar/Elias/Shelley on:?02/17/2025 11:12 AM EDT History and Physical Notes * Examination Category Sub-Category Detail Notes Category Not es General Examination This is an elderly female. Alert and oriented today and in no acute distress. Patient comes in ambulating in sandals with socks with the aid of a walker. Breathing is regular and unlabored while sitting. Affect is pleasant and cooperative. No unusual anxiety or depression noted. Hearing loss. No evidence of visual impairment that would impact self care or ambulation. Patient has palpable dorsalis pedis and posterior tibial pulse bilaterally. +2 pitting edema present to both lower extremities from the tibial tuberosity region to the ankle bilaterally. No hair growth to the lower extremities. There is some edema to the dorsum of both feet that is slightly pitting. There is xerosis of skin around the dorsal and plantar forefoot area bilaterally and inbetween the toes. There is some mild hyperemia to the xerotic areas, but no pustules. All toenails are dystropic with onychogryphosis and onycholysis. The right 3rd toe is edematous and erythematous without any streaking erythema. There are many patches of oozing tophi present around the dorsum of the right 3rd toe. No purulence. No fluctuance or malodor. There is restricted motion of the right 3rd toe PIPJ and DIPJ, likely due to complete destruction. There are obvious tophi present to the metacarpal joints on both hands and in the distal tips of her fingers. She has large palpable tophi around both elbows. There are likely tophi around the restricted 1st MTP bilaterally as well. Subtalar and ankle joint range of motion are unrestricted. 5/5 strength for anterior, posterior, and lateral lower extremity muscle groups on the left and right. Consultation Request Notes Referral Date Referring Provider Referred Provider Not sebastian 06/30/2024 JOSEFA BARRIGA , Patient with tophaceous gout likely secondary to her diuretic use. This is present at multiple sites (hands, fingers, elbows, feet) Need uric acid testing and further management. Rec referral also to rheum for possible use of krystexxa vs other medical management of tophi.
--- OUTSIDE RECORDS SUMMARY | 2025-02-17 11:13 | XMS_ITS ---
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 Generated for Vanessa villar/Elias/eTransmitting on:?02/17/2025 11:12 AM EDT
--- OUTSIDE RECORDS SUMMARY | 2025-02-17 11:13 | XMS_ITS ---
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 Generated for Vanessa villar/Elias/eTransmitting on:?02/17/2025 11:12 AM EDT
== END 2025-02-17 10:53 | disposition home or self-care (01) ==
LOC: HO.HMCH 10:35
PROVIDERS: PCP Internal Medicine; Visit Provider Physician Assistant Medical
DX: Z76.89 Persons encountering health services in other specified circumstances (principal); Z99.89 Dependence on other enabling machines and devices; R26.9 Unspecified abnormalities of gait and mobility; I48.91 Unspecified atrial fibrillation; D50.9 Iron deficiency anemia, unspecified; K21.9 Gastro-esophageal reflux disease without esophagitis; E54 Ascorbic acid deficiency; I10 Essential (primary) hypertension; J45.909 Unspecified asthma, uncomplicated; M10.9 Gout, unspecified

== ENCOUNTER → 2025-02-17 10:35 | Outpatient (BNVA) | payer MEDICARE, SELFPAY | PROVIDERS: PCP Internal Medicine; Visit Provider Physician Assistant Medical | DX: R26.9 Unspecified abnormalities of gait and mobility (principal); Z76.89 Persons encountering health services in other specified circumstances; Z99.89 Dependence on other enabling machines and devices; I48.91 Unspecified atrial fibrillation; D50.9 Iron deficiency anemia, unspecified; K21.9 Gastro-esophageal reflux disease without esophagitis; E54 Ascorbic acid deficiency; I10 Essential (primary) hypertension; J45.909 Unspecified asthma, uncomplicated; M10.9 Gout, unspecified | CPT/HCPCS: 96127; 99202 ==